=== PATIENT | male | born 1995 | race African-American/Black ===

== ENCOUNTER 2017-01-22 15:18 | Emergency (ER) | payer OTHER ==
[~2017-01-22] VITALS: Ht 172.7 cm; Wt 65.0 kg
[~2017-01-22 15:18] MED LIST: AZIT500T3 PO; ESCI5SOL2 PO; ESCI5TAB10 PO; HYDR-3498 PO; HYDR-762 PO; IBUP-1542 PO; IBUP800T25 PO; ONDA4TAB14 PO; TRAM50TA2 PO
[2017-01-22] MEDS ORDERED: DIPHTH/TET/ACEL PERTUSS (ADULT) 0.5 ML VIAL IM* ONE (15:30)
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
[2017-01-22 16:00] VITALS: Ht 172.7 cm; Wt 65.0 kg
[2017-01-22 16:46] VITALS: BP 122/79; PULSE 74; RESP 16; TEMP 98.6
== END 2017-01-22 16:48 ==
LOC: E/R 15:18 → EDBD 15:18 → MERGE 15:18 → E/R 16:48
DX: T75.4XXA Electrocution, initial encounter (principal); S70.02XA Contusion of left hip, initial encounter; S70.11XA Contusion of right thigh, initial encounter; F20.9 Schizophrenia, unspecified; W86.8XXA Exposure to other electric current, initial encounter; Y92.9 Unspecified place or not applicable; Z23 Encounter for immunization
CPT/HCPCS: 90471; 90715; 93005